=== PATIENT | male | born 1980 | race Caucasian/White ===

== ENCOUNTER 2023-09-19 07:34 | Emergency (ER) | payer OTHER ==
[~2023-09-19] VITALS: Ht 182.9 cm; Wt 90.7 kg
[2023-09-19] MEDS: SODIUM CHLORIDE 0.9% 1000ML 1,000 ML IV ONE (07:56)
[2023-09-19] MEDS: ONDANSETRON HCL INJ 2MG/ML 2ML 2 MG/ML VIAL IV STA (07:56)
[2023-09-19] MEDS ORDERED: PERIDEX473 M1 PO (08:33)
[2023-09-19] MEDS ORDERED: ONDANSETRON ODT4 MG PO (08:59)
[2023-09-19 09:16] VITALS: PULSE 72; RESP 16; TEMP 97.8; O2SAT 95
== END 2023-09-19 09:15 | disposition home or self-care (01) ==
LOC: FSED 07:39
DX: R11.0 Nausea (principal); T67.5XXA Heat exhaustion, unspecified, initial encounter; E87.5 Hyperkalemia; R42 Dizziness and giddiness; R51.9 Headache, unspecified; K05.10 Chronic gingivitis, plaque induced
CPT/HCPCS: 70450; 80048; 80076; 80307; 81003; 85025; 93005; 99284; J2405; J7030